=== PATIENT | male | born 1955 | race Caucasian/White ===

== ENCOUNTER 2016-09-04 | Emergency (ER) | payer OTHER | END 2016-09-04 18:28 | disposition home or self-care (01) ==

== ENCOUNTER 2017-08-21 08:33 | Day surgery (SDC) | payer OTHER ==
[2017-08-21] MEDS ORDERED: LACTATED RINGERS 1,000 ML IV ONE (09:09)
[2017-08-21] MEDS ORDERED: fentaNYL 100 MCG/2 ML VIAL IVP ONE (10:03)
[2017-08-21] MEDS ORDERED: KETAMINE 500 MG/10 ML VIAL IVP ONE (10:03)
[2017-08-21 10:53] VITALS: BP 123/72
== END 2017-08-21 08:34 | disposition home or self-care (01) ==
LOC: SDS 08:33
PROVIDERS: ATTEND Surgery
PROC: 0DBP8ZX Excision of Rectum, Via Natural or Artificial Opening Endoscopic, Diagnostic (ICD-10-PCS; principal; 2017-08-21 09:45)
DX: Z12.11 Encounter for screening for malignant neoplasm of colon (principal); D12.8 Benign neoplasm of rectum; K64.8 Other hemorrhoids; I10 Essential (primary) hypertension; Z87.891 Personal history of nicotine dependence
CPT/HCPCS: 45380; J7120

== ENCOUNTER 2019-05-02 22:28 | Emergency (ER) | payer OTHER ==
--- NOTE | 2019-05-02 22:52 | ED Physician Documentation ---
History of Present Illness - Stated complaint Stated Complaint: CP/BP CONCERN - Chief complaint Chief Complaint: Cardiac - Additonal information Additional information: This is a 64-year-old male with a history of hypertension who presents with elevated blood pressure. Patient states that he previously was on lisinopril in the past, but his blood pressure normalized after Starting a keto diet, and he was able to get off of his medication. Several weeks ago he began having some elevated blood pressure reading's, his blood pressure has been as high as 200/130, so his primary care provider started him back on 20 mg of lisinopril. Today he checked his blood pressure multiple times and he did have some readings in the high 100s to low 200s systolic. He was told by his primary care provider at that if he has any readings above 200 she needs to come to the emergency department. He presents to the ED because of this. On ROS he states that he did have 1-2 brief 1 second "twangs" of pain in his center chest hours ago, but no persistent chest pain, no shortness of breath, no headache, no weakness or numbness. Review of Systems Constitutional: denies: Fever Eyes: denies: Loss of vision Throat: reports: Dental pain / toothache Cardiac: denies: Palpitations Respiratory: denies: Dyspnea GI: denies: Abdominal Pain Skin: denies: Rash Neurologic: denies: Focal weakness Immunocompromised: denies: Immunocompromised PD PAST MEDICAL HISTORY - Past Medical History Cardiovascular: Hypertension, High cholesterol, Arrhythmia Respiratory: None Endocrine/Autoimmune: None GI: Hemorrhoids : None HEENT: Other Psych: None Musculoskeletal: None Derm: Other - Past Surgical History Past Surgical History: Yes General: Colonoscopy Ortho: Other - Present Medications Home Medications: Ambulatory Orders Medication Instructions Recorded Confirmed Lisinopril [Prinivil] 1 tab PO DAILY 09/04/16 08/21/17 Potassium Chloride [Micro-K] 1 tab PO DAILY 09/04/16 08/21/17 Rosuvastatin [Crestor] 1 tab PO DAILY 09/04/16 08/21/17 hydroCHLOROthiazide 1 tab PO DAILY 09/04/16 08/21/17 [Hydrochlorothiazide] - Allergies Allergies/Adverse Reactions: Allergies Allergy/AdvReac Type Severity Reaction Status Date / Time No Known Drug Allergies Allergy Verified 09/04/16 17:36 - Social History Does the pt smoke?: No Smoking Status: Never smoker Does the pt drink ETOH?: Yes - Immunizations Immunizations are current?: No Immunizations: TDAP >10years/unknown - POLST Patient has POLST: No PD ED PE NORMAL - Vitals Vital signs reviewed: Yes - General General: Alert and oriented X 3, No acute distress - HEENT HEENT: PERRL - Neck Neck: Supple, no meningeal sign - Cardiac Cardiac: RRR, No murmur - Respiratory Respiratory: Clear bilaterally - Abdomen Abdomen: Soft, Non tender, Non distended - Derm Derm: Warm and dry - Extremities Extremities: No deformity - Neuro Neuro: Alert and oriented X 3 - Psych Psych: Normal mood, Normal affect Results - Vitals Vitals: Vital Signs - 24 hr 05/02/19 05/02/19 05/02/19 22:32 22:52 22:55 Temperature 36.8 C 36.8 C Heart Rate 93 80 Respiratory 13 12 Rate Blood Pressure 194/90 H 194/96 H Blood Pressure 194/90 H [Left] O2 Saturation 99 97 05/02/19 23:44 Temperature Heart Rate 71 Respiratory 18 Rate Blood Pressure 144/94 H Blood Pressure [Left] O2 Saturation 98 Oxygen O2 Source Room air - EKG (time done) 22:36 Other comments: Other comments (Rate 79, rhythm sinus, there is no ST segment elevation or depression. No abnormal T wave inversions. Intervals within normal limits.) - Labs Labs: Laboratory Tests 05/02/19 05/02/19 05/02/19 22:45 22:45 23:25 WBC 9.6 RBC 4.77 Hgb 15.2 Hct 44.7 MCV 93.7 MCH 31.9 H MCHC 34.0 RDW 12.2 Plt Count 241 MPV 9.0 Neut # (Auto) 5.9 Lymph # (Auto) 2.8 [place] # (Auto) 0.7 Eos # (Auto) 0.1 Baso # (Auto) 0.0 Absolute Nucleated RBC 0.00 Nucleated RBC % 0.0 Sodium 140 Potassium 3.3 L Chloride 104 Carbon Dioxide 24 Anion Gap 12.0 BUN 14 Creatinine 1.0 Estimated GFR (MDRD) 76 L Glucose 99 Calcium 9.4 Total Bilirubin 1.3 H AST 22 ALT 32 Alkaline Phosphatase 51 Troponin I High Sens 6.1 Total Protein 7.1 Albumin 4.4 Globulin 2.7 Albumin/Globulin Ratio 1.6 Lipase 28 - Rads (name of study) CXR Radiology: Other (No acute intrathoracic abnormality.) PD MEDICAL DECISION MAKING - ED course Complexity details: considered differential (Hypertension, hypertensive emergency, ACS, dysrhythmia, pneumothorax, PE) ED course: Patient presents with hypertension, in triage he is hypertensive to the 190s over 90s. His exam is unremarkable. Chest x-ray shows no acute abnormality. Labs are unremarkable. EKG shows no convincing signs of ischemia or dysrhythmia. Patient was allowed to rest in his room and his blood pressure spontaneously improved to the 140s over 80s. He has been asymptomatic with his blood pressure, other than he had several very brief twinges of pain early in the day. High-sensitivity troponin is negative, and a single troponin is sufficient given he has not had any pain in recent hours. Given his history, EKG and negative troponin ACS is highly unlikely. His history is also not consistent with pulmonary embolism, he has no clinical signs of DVT, and has no chest pain or shortness of breath at this time. I discussed with patient that he needs to follow-up closely with his primary care provider on his blood pressure, he should log his pressures and call tomorrow to discuss whether further medication adjustment is necessary. I also discussed return precautions including signs of hypertensive emergency including confusion, chest pain, diaphoresis/vomiting, or any other concerning symptoms. Patient verbalizes understanding and was discharged home in the care of his . Departure - Departure Disposition: 01 Home, Self Care Clinical Impression: Hypertension Qualifiers: Hypertension type: unspecified Qualified Code(s): I10 - Essential (primary) hypertension Chest pain Qualifiers: Chest pain type: unspecified Qualified Code(s): R07.9 - Chest pain, unspecified Condition: Good Instructions: ED Chest Pain Atypical Unkn Cause, ED HTN Established Follow-Up: Apryl Celaya MD [Primary Care Provider] - (Call tomorrow to discuss hypertension) Comments: You were seen today for high blood pressure, this has come down nicely without medications given here. I do not see signs of heart strain on your work up today. Please continue to log your blood pressure, and call your primary care provider tomorrow to discuss whether you need need further medication adjustment. If you develop chest pain, severe headache, confusion, shortness of breath, please return to the emergency department. Discharge Date/Time: 05/03/19 00:30
[2019-05-02 22:53] LABS: BASOPHILS % (AUTO) 0.4 %; EOSINOPHILS # (AUTO) 0.1 10^3/uL (0.0-0.7); EOSINOPHILS % (AUTO) 0.8 %; HGB - HEMOGLOBIN 15.2 g/dL (14.0-18.0); LYMPHOCYTES # (AUTO) 2.8 10^3/uL (1.5-3.5); LYMPHOCYTES % (AUTO) 29.2 %; MEAN CORPUSCULAR HEMOGLOBIN 31.9 pg (27.0-31.0); MEAN CORPUSCULAR VOLUME 93.7 fL (80.0-94.0); MONOCYTES # (AUTO) 0.7 10^3/uL (0.0-1.0); MONOCYTES % (AUTO) 7.5 %; NEUTROPHILS # (AUTO) 5.9 10^3/uL (1.5-6.6); NEUTROPHILS % (AUTO) 61.8 %; PLT - PLATELET COUNT 241 10^3/uL (130-450); RED BLOOD COUNT 4.77 10^6/uL (4.70-6.10); RED CELL DISTRIBUTION WIDTH 12.2 % (12.0-15.0); WHITE BLOOD COUNT 9.6 x10^3/uL (4.8-10.8)
--- NOTE | 2019-05-02 23:01 | XRAY Report ---
Reason: chest pain Procedure Date: 05/02/2019 Accession Number: [id number] / [id number] Procedure: XR - Chest 1 View X-Ray CPT Code: 17710 FULL RESULT: EXAM: CHEST RADIOGRAPHY EXAM DATE: 05/02/2019 10:51 PM. CLINICAL HISTORY: Chest pain. COMPARISON: None. TECHNIQUE: 1 view. FINDINGS: Lungs/Pleura: No focal opacities evident. No pleural effusion. No pneumothorax. Mediastinum: Within exam limitations, the cardiomediastinal contour is normal. Other: None. IMPRESSION: No acute intrathoracic plain film abnormality. RADIA
[2019-05-02 23:07] LABS: ALBUMIN 4.4 g/dL (3.2-5.5); ALBUMIN/GLOBULIN RATIO 1.6 (1.0-2.2); BILIRUBIN,TOTAL 1.3 mg/dL (0.2-1.0); CALCIUM 9.4 mg/dL (8.5-10.3); TOTAL PROTEIN 7.1 g/dL (6.7-8.2)
[2019-05-02 23:44] VITALS: BP 144/94
== END 2019-05-03 00:30 | disposition home or self-care (01) ==
LOC: ED 22:28
DX: I10 Essential (primary) hypertension (principal); R07.9 Chest pain, unspecified
CPT/HCPCS: 36415; 71045; 80053; 83690; 84484; 85025; 93005; 99284

== ENCOUNTER 2019-11-22 06:51 | Observation (INO) | payer OTHER ==
[2019-11-22 07:35] LABS: BASOPHILS # (AUTO) 0.1 10^3/uL (0.0-0.1); BASOPHILS % (AUTO) 0.5 %; EOSINOPHILS # (AUTO) 0.2 10^3/uL (0.0-0.7); HGB - HEMOGLOBIN 16.1 g/dL (14.0-18.0); INR 1.1 (0.8-1.2); LYMPHOCYTES # (AUTO) 3.3 10^3/uL (1.5-3.5); LYMPHOCYTES % (AUTO) 33.2 %; MEAN CORPUSCULAR HEMOGLOBIN 33.3 pg (27.0-31.0); MEAN CORPUSCULAR HGB CONC 35.9 g/dL (32.0-36.0); MEAN CORPUSCULAR VOLUME 92.8 fL (80.0-94.0); MEAN PLATELET VOLUME 9.2 fL (7.4-11.4); MONOCYTES # (AUTO) 0.6 10^3/uL (0.0-1.0); MONOCYTES % (AUTO) 6.4 %; NEUTROPHILS # (AUTO) 5.7 10^3/uL (1.5-6.6); NEUTROPHILS % (AUTO) 57.6 %; PLT - PLATELET COUNT 282 10^3/uL (130-450); PT - PROTHROMBIN TIME 12.5 secs (9.9-12.6); RED BLOOD COUNT 4.84 10^6/uL (4.70-6.10); RED CELL DISTRIBUTION WIDTH 12.2 % (12.0-15.0); WHITE BLOOD COUNT 9.9 x10^3/uL (4.8-10.8)
[2019-11-22 07:46] LABS: ALBUMIN 4.4 g/dL (3.2-5.5); ALBUMIN/GLOBULIN RATIO 1.7 (1.0-2.2); BILIRUBIN,TOTAL 1.1 mg/dL (0.2-1.0); CALCIUM 9.1 mg/dL (8.5-10.3); CREATININE 0.9 mg/dL (0.6-1.2)
[2019-11-22] MEDS ORDERED: ONDANSETRON 4 MG/2 ML VIAL IVP STA (08:10)
--- NOTE | 2019-11-22 08:22 | CT Report ---
Reason: syncope/fall/head injury/confusion Procedure Date: 11/22/2019 Accession Number: [id number] / [id number] Procedure: CT - HEAD WO CPT Code: Final Report FULL RESULT: EXAM: CT HEAD EXAM DATE: 11/22/2019 07:53 AM. CLINICAL HISTORY: Syncope with fall and head injury. Confusion. COMPARISON: None. TECHNIQUE: Multiaxial CT images were obtained from the foramen magnum to the vertex. Reformats: Sagittal and coronal. IV contrast: None. In accordance with CT protocol optimization, one or more of the following dose reduction techniques were utilized for this exam: automated exposure control, adjustment of mA and/or KV based on patient size, or use of iterative reconstructive technique. FINDINGS: Parenchyma: Mild patchy white matter hypoattenuation, compatible with chronic small vessel ischemic change. No intraparenchymal hemorrhage, mass effect, or CT findings of evolving acute/subacute infarct. [place]-white differentiation is distinct. Extraaxial Spaces: Normal for age. No subdural or epidural collections identified. Ventricles: The ventricles and basal cisterns are patent. No hydrocephalus or midline shift. Sinuses: The visualized paranasal sinuses and mastoid air cells are clear. Bones: No evidence of fracture or calvarial defect. Other: Subgaleal scalp hematoma at the posterior vertex. IMPRESSION: 1. Subgaleal scalp hematoma at the posterior vertex. 2. Mild chronic microvascular angiopathy. 3. No acute intracranial abnormality. RADIA
--- NOTE | 2019-11-22 08:31 | CT Report ---
Reason: syncope/fall/head injury Procedure Date: 11/22/2019 Accession Number: [id number] / [id number] Procedure: CT - CERVICAL SPINE WO CPT Code: Final Report FULL RESULT: EXAM: CT CERVICAL SPINE WITHOUT CONTRAST DATE: 11/22/2019 07:53 AM. HISTORY: Fall with syncope and head injury. Confusion. COMPARISONS: None. TECHNIQUE: Thin-section axial images were acquired of the cervical spine without contrast. Post-processing: Coronal and sagittal reformats. Other: None. In accordance with CT protocol optimization, one or more of the following dose reduction techniques were utilized for this exam: automated exposure control, adjustment of mA and/or KV based on patient size, or use of iterative reconstructive technique. FINDINGS: Alignment: No scoliosis or spondylolisthesis. Bones: No fracture or bone lesion. Interspace Levels/Facets: C1-C2: Mild odontoaxial osteoarthritis. C2-C3: Mild disk height loss. Mild disk osteophyte complex and mild right facet arthropathy, without significant bony central canal stenosis or neural foraminal narrowing. C3-C4: Mild disk height loss. Disk osteophyte complex with right uncovertebral hypertrophy and mild right facet arthropathy causing severe right and mild left bony neural foraminal narrowing. No significant bony central canal stenosis. C4-C5: Mild disk height loss. Disk osteophyte complex and mild bilateral facet arthropathy causing mild bony central canal stenosis and severe bilateral bony neural foraminal narrowing. C5-C6: Moderate to severe disk height loss. Disk osteophyte complex causing mild bony central canal stenosis and severe left and moderate right bony neural foraminal narrowing. C6-C7: Moderate to severe disk height loss. Disk osteophyte complex causing mild bony central canal stenosis. No significant bony neural foraminal narrowing. C7-T1: Mild disk height loss. Disk osteophyte complex and mild right facet arthropathy. No significant bony central canal stenosis or neural foraminal narrowing. Other: No paravertebral hematoma or edema is evident. The visualized portions of the lung apices are clear. IMPRESSION: 1. Multilevel degenerative disk disease and facet arthropathy, as detailed above. 2. No acute bony abnormality. RADIA
--- NOTE | 2019-11-22 08:48 | ED Physician Documentation ---
PD HPI ALTERED MENTAL STATUS - Stated complaint Stated Complaint: VOMITING/CONFUSION - Chief complaint Chief Complaint: Neuro - History obtained from History obtained from: Patient - Additional information Additional information: Patient comes emergency department complaining of nausea and generalized weakness that started today. Patient does not remember going to bed last night or waking up this morning. According to report the gave, they were going out to the garden this morning when the looked back and saw the patient had fallen to the ground. He was dazed and confused and has remained confused since. Patient states that he feels "blah and fuzzy". He states he cannot remember what medications he is on and that details of recent events in general seem unclear. He denies any focal neurologic deficits. No chest pain or shortness of breath. He has not felt sick with anything recently. He denies any abdominal pain or vomiting. He does complain of some nausea at this time. No fevers or chills. No cough or rhinorrhea. No dysuria. Patient has no history of CVA. No known heart problems. No other complaints at this time. He is not a diabetic. Review of Systems Ten Systems: 10 systems reviewed and negative Constitutional: reports: Reviewed and negative Eyes: reports: Reviewed and negative Ears: reports: Reviewed and negative Nose: reports: Reviewed and negative Throat: reports: Reviewed and negative Cardiac: reports: Reviewed and negative Respiratory: reports: Reviewed and negative GI: reports: Nausea : reports: Reviewed and negative Skin: reports: Reviewed and negative Musculoskeletal: reports: Reviewed and negative Neurologic: reports: Generalized weakness, Confused Psychiatric: reports: Reviewed and negative Endocrine: reports: Reviewed and negative Immunocompromised: reports: Reviewed and negative PD PAST MEDICAL HISTORY - Past Medical History Cardiovascular: Hypertension, High cholesterol, Arrhythmia Respiratory: None Neuro: None Endocrine/Autoimmune: None GI: Hemorrhoids : None HEENT: Other Psych: None Musculoskeletal: None Derm: Other - Past Surgical History Past Surgical History: Yes General: Colonoscopy Ortho: Other - Present Medications Home Medications: Ambulatory Orders Medication Instructions Recorded Confirmed Rosuvastatin [Crestor] 10 mg PO QPM 09/04/16 11/22/19 Zolpidem Tartrate 5 mg PO QPM PRN 11/22/19 11/22/19 lisinopriL [Lisinopril] 10 mg PO BID 11/22/19 11/22/19 - Allergies Allergies/Adverse Reactions: Allergies Allergy/AdvReac Type Severity Reaction Status Date / Time No Known Drug Allergies Allergy Verified 09/04/16 17:36 - Social History Does the pt smoke?: No Smoking Status: Never smoker Does the pt drink ETOH?: Yes Does the pt have substance abuse?: Yes - Immunizations Immunizations are current?: No Immunizations: TDAP >10years/unknown - POLST Patient has POLST: No PD ED PE NORMAL - Vitals Vital signs reviewed: Yes - General General: No acute distress, Well developed/nourished, Other (Patient is alert and coherent, and is able to express coherent thoughts. 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 He is able to speak clearly and express coherent thoughts, and is alert, but does not have clear recollection of general life details in recent events.) - Psych Psych: Normal mood, Normal affect Results - Vitals Vitals: Oxygen O2 Source Room air - EKG (time done) 0720 Rate: Rate (enter#) (66) Rhythm: NSR [place]: Normal Intervals: Normal [place] QRS: No: Normal (Abnormal R wave progression, early transition.) Ischemia: Normal ST segments Compare to prior EKG: Old EKG unavailable Computer interpretation: Agree with computer - Labs Labs: Laboratory Tests 11/22/19 11/22/19 11/22/19 07:22 07:22 07:22 WBC 9.9 RBC 4.84 Hgb 16.1 Hct 44.9 MCV 92.8 MCH 33.3 H MCHC 35.9 RDW 12.2 Plt Count 282 MPV 9.2 Neut # (Auto) 5.7 Lymph # (Auto) 3.3 [place] # (Auto) 0.6 Eos # (Auto) 0.2 Baso # (Auto) 0.1 Absolute Nucleated RBC 0.00 Nucleated RBC % 0.0 PT 12.5 INR 1.1 Sodium 135 Potassium 2.9 L Chloride 103 Carbon Dioxide 19 L Anion Gap 13.0 BUN 15 Creatinine 0.9 Estimated GFR (MDRD) 86 L Glucose 181 H POC Whole Bld Glucose Glycated Hemoglobin Estim Average Glucose Calcium 9.1 Total Bilirubin 1.1 H AST 26 ALT 31 Alkaline Phosphatase 54 Troponin I High Sens Total Protein 7.0 Albumin 4.4 Globulin 2.6 Albumin/Globulin Ratio 1.7 Lipase 27 Urine Color Urine Clarity Urine pH Ur Specific [place] Urine Protein Urine Glucose (UA) Urine Ketones Urine Occult Blood Urine Nitrite Urine Bilirubin Urine Urobilinogen Ur Leukocyte Esterase Ur Microscopic Review Urine Culture Comments Urine Opiates Screen Ur Oxycodone Screen Urine Methadone Screen Ur Propoxyphene Screen Ur Barbiturates Screen Ur Tricyclics Screen Ur Phencyclidine Scrn Ur Amphetamine Screen U Methamphetamines Scrn U Benzodiazepines Scrn Urine Cocaine Screen U Cannabinoids Screen Ethyl Alcohol 11/22/19 11/22/19 11/22/19 07:22 07:24 08:15 WBC RBC Hgb Hct MCV MCH MCHC RDW Plt Count MPV Neut # (Auto) Lymph # (Auto) [place] # (Auto) Eos # (Auto) Baso # (Auto) Absolute Nucleated RBC Nucleated RBC % PT INR Sodium Potassium Chloride Carbon Dioxide Anion Gap BUN Creatinine Estimated GFR (MDRD) Glucose POC Whole Bld Glucose 157 H Glycated Hemoglobin 4.9 Estim Average Glucose 94 Calcium Total Bilirubin AST ALT Alkaline Phosphatase Troponin I High Sens Total Protein Albumin Globulin Albumin/Globulin Ratio Lipase Urine Color YELLOW Urine Clarity CLEAR Urine pH 7.5 Ur Specific [place] 1.020 Urine Protein NEGATIVE Urine Glucose (UA) NEGATIVE Urine Ketones 40 H Urine Occult Blood NEGATIVE Urine Nitrite NEGATIVE Urine Bilirubin NEGATIVE Urine Urobilinogen 0.2 (NORMAL) Ur Leukocyte Esterase NEGATIVE Ur Microscopic Review NOT INDICATED Urine Culture Comments NOT INDICATED Urine Opiates Screen Ur Oxycodone Screen Urine Methadone Screen Ur Propoxyphene Screen Ur Barbiturates Screen Ur Tricyclics Screen Ur Phencyclidine Scrn Ur Amphetamine Screen U Methamphetamines Scrn U Benzodiazepines Scrn Urine Cocaine Screen U Cannabinoids Screen Ethyl Alcohol 11/22/19 11/22/19 11/22/19 08:15 10:24 10:25 WBC RBC Hgb Hct MCV MCH MCHC RDW Plt Count MPV Neut # (Auto) Lymph # (Auto) [place] # (Auto) Eos # (Auto) Baso # (Auto) Absolute Nucleated RBC Nucleated RBC % PT INR Sodium Potassium Chloride Carbon Dioxide Anion Gap BUN Creatinine Estimated GFR (MDRD) Glucose POC Whole Bld Glucose Glycated Hemoglobin Estim Average Glucose Calcium Total Bilirubin AST ALT Alkaline Phosphatase Troponin I High Sens 4.9 Total Protein Albumin Globulin Albumin/Globulin Ratio Lipase Urine Color Urine Clarity Urine pH Ur Specific [place] Urine Protein Urine Glucose (UA) Urine Ketones Urine Occult Blood Urine Nitrite Urine Bilirubin Urine Urobilinogen Ur Leukocyte Esterase Ur Microscopic Review Urine Culture Comments Urine Opiates Screen NEGATIVE Ur Oxycodone Screen NEGATIVE Urine Methadone Screen NEGATIVE Ur Propoxyphene Screen NEGATIVE Ur Barbiturates Screen NEGATIVE Ur Tricyclics Screen NEGATIVE Ur Phencyclidine Scrn NEGATIVE Ur Amphetamine Screen NEGATIVE U Methamphetamines Scrn NEGATIVE U Benzodiazepines Scrn NEGATIVE Urine Cocaine Screen NEGATIVE U Cannabinoids Screen POSITIVE H Ethyl Alcohol < 5.0 - Rads (name of study) CT head Radiology: Final report received, EMP read indepedently, See rad report (unremarkable) PD MEDICAL DECISION MAKING - ED course Complexity details: reviewed old records, reviewed results, re-evaluated patient, considered differential, d/w patient ED course: Patient was worked up with labs, urinalysis, EKG, and CTs of the C-spine and head, all of which were unremarkable. He did begin actively vomiting in the emergency department, so was given Zofran as well as IV fluids. The patient did not have worsening mental status, but he did seem to have progressive amnesia which did not bella. Although his work-up was negative, I felt he should be admitted to the hospital for observation to be sure his mental status is improving. I spoke with Dr. Combs, who is agreeable to admission the patient. The patient is also agreeable to this plan. Departure - Departure Disposition: ED Place in Observation Clinical Impression: Altered mental status Qualifiers: Altered mental status type: disorientation Qualified Code(s): R41.0 - Disorientation, unspecified Discharge Date/Time: 11/22/19 12:00
[2019-11-22] MEDS ORDERED: SODIUM CHLORIDE 0.9% 1,000 ML IV ONE (08:51)
[2019-11-22 09:05] LABS: BILIRUBIN,URINE NEGATIVE (NEGATIVE); GLUCOSE, URINE (UA) NEGATIVE (NEGATIVE); KETONES,URINE (UA) 40 mg/dL (NEGATIVE); LEUKOCYTE ESTERASE, URINE NEGATIVE (NEGATIVE); NITRITE,URINE NEGATIVE (NEGATIVE); OCCULT BLOOD,URINE NEGATIVE (NEGATIVE); PH,URINE 7.5 PH (5.0-7.5); PROTEIN,URINE NEGATIVE (NEGATIVE); UROBILINOGEN,URINE 0.2 (NORMAL) E.U./dL (NORMAL)
[2019-11-22 09:08] LABS: CLARITY,URINE CLEAR (CLEAR)
[2019-11-22 10:34] LABS: MUDS CUTOFF CONCENTRATIONS CUTOFF CONC BELOW:
[2019-11-22] MEDS ORDERED: SODIUM CHLORIDE FLUSH 0.9% 10 ML SYRINGE IVP PRN (10:36)
[2019-11-22] MEDS ORDERED: ACETAMINOPHEN 325 MG TABLET PO PRN (10:41)
[2019-11-22] MEDS ORDERED: ONDANSETRON 4 MG/2 ML VIAL IVP PRN (10:41)
[2019-11-22 10:47] LABS: AMPHETAMINE SCREEN,URINE NEGATIVE (NEGATIVE); BENZODIAZEPINES SCREEN, URINE NEGATIVE (NEGATIVE); COCAINE SCREEN URINE NEGATIVE (NEGATIVE); METHADONE SCREEN, URINE NEGATIVE (NEGATIVE); METHAMPHETAMINES SCREEN, URINE NEGATIVE (NEGATIVE); OPIATE SCREEN, URINE NEGATIVE (NEGATIVE); OXYCODONE SCREEN, URINE NEGATIVE (NEGATIVE); PROPOXYPHENE SCREEN, URINE NEGATIVE (NEGATIVE); TRICYCLIC ANTIDEPRESSANT,URINE NEGATIVE (NEGATIVE)
[2019-11-22] MEDS ORDERED: ZOLPIDEM 5 MG TABLET PO PRN (10:53)
[2019-11-22] MEDS: POTASSIUM CHLOR 10 MEQ/100 ML 10 MEQ/100 ML BAG IV SCH ×2 (11:06→13:18)
--- NOTE | 2019-11-22 11:06 | HISTORY & PHYSICAL EXAMINATION ---
Chief Complaint - Chief Complaint Chief Complaint: syncope History of Present Illness - Admitted From Admitted From:: ER - History Obtained From History obtained from: pt - History of Present Illness HPI Comment/Other: this a 64 years old male with a past medical history significant of hypertension, hyperlipidemia, who present in the ER for complaint syncope. Patient report in the morning when he worked with his in the yard, his could not find and talk with him, then his saw him collapsed in the ground. his found that he lost conscious for short time. Patient state " I do not known and I did not remember." Patient denies injury, Except posterior of the head have some pain. CT of head reveals subgaleal scalp hematoma at the posterior vertex, no acute intracranial abnormality. Routine level test in the ER normal troponin, Potassium 2.9, Slightly elevated glucose but A1c is normal, Otherwise unremarkables. EKG review sinus rhythm. pt is alert and oriented. Patient report he quit smoking 10 years ago he denies alcohol or drug abuse. Patient denies chest pain, fever, chilling, shortness of breathing, abdominal pain, nausea, vomiting, diarrhea or other focal neurologic deficits. pt was admitted for syncope. Discussed with the patient for care goal, patient request full code History - Past Medical History Cardiovascular: reports: Hypertension, High cholesterol, Arrhythmia Respiratory: reports: None Neuro: reports: None Endocrine/Autoimmune: reports: None GI: reports: Hemorrhoids : reports: None HEENT: reports: Other Psych: reports: None Musculoskeletal: reports: None Derm: reports: Other MRSA Hx?: No - Past Surgical History General: reports: Colonoscopy Ortho: reports: Other - Family & Social History Family History: Father: , Blood Disease/Disorder Family History Comment/Other: pt report his father from PE, he did not know about his mother, his siblings are health. he has no child Social History Notes: he quitted smoking about 10 yrs ago. he denies alcohol and drug abuse - POLST Patient has POLST: No Meds/Allgy - Home Medications Home Medications: Ambulatory Orders Medication Instructions Recorded Confirmed Rosuvastatin [Crestor] 10 mg PO QPM 09/04/16 11/22/19 Zolpidem Tartrate 5 mg PO QPM PRN 11/22/19 11/22/19 lisinopriL [Lisinopril] 10 mg PO BID 11/22/19 11/22/19 - Allergies Allergies/Adverse Reactions: Allergies Allergy/AdvReac Type Severity Reaction Status Date / Time No Known Drug Allergies Allergy Verified 09/04/16 17:36 Review of Systems - Constitutional Constitutional: denies: Fatigue, Fever, Chills, Malaise, Weakness, Poor appetite, Diaphoresis, Night sweats - Eyes Eyes: denies: Blurred vision, Spots in vision, Field loss, Vision loss, Dipolpia - Ears, Nose & Throat Ears, Nose & Throat: denies: Ear pain, Hearing loss, Hearing aids, Vertigo, Nasal pain, Nasal discharge, Nosebleeds, Nasal congestion, Dentures, Sore throat, Mouth lesions, Bleeding gums - Cardiovascular Cariovascular: reports: Syncope. denies: Irregular heart rate, Palpitations, Chest pain, Edema, Lightheadedness, Exertional dyspnea, Decr. exercise tolerance - Respiratory Respiratory: denies: Cough, Sputum production, Wheezing, Snoring, Hemoptysis, Orthopnea, SOB at rest, SOB with exertion - Gastrointestinal Gastrointestinal: denies: Abdominal pain, Abdominal distention, Constipation, Diarrhea, Change in bowel habits, Rectal bleeding, Black stools, Nausea, Vomiting, Bile emesis, Alireza blood emesis, Coffee grounds emesis - Genitourinary Genitourinary: denies: Dysuria, Frequency, Urgency, Hematuria, Incontinence, Flank pain, Nocturia, Urethral discharge - Musculoskeletal Musculoskeletal: denies: Muscle pain, Back pain, Muscle aches, Stiffness, Limited range of motion, Muscle weakness, Gout, Joint pain - Integumentary Integumentary: denies: Rash, Pruritis, Lesions, Dryness, Lumps, Acne, Pigment changes, Nail changes - Neurological Neurological: denies: General weakness, Focal weakness, Headache, Dizziness, Numbness, Memory problems, Pre-existing deficit, Abnormal gait, Seizures, Incoordination, Slurred speech - Psychiatric Psychiatric: denies: Depression, Anxiety, Suicidal, Delusions, Hallucinations, Homicidal - Endocrine Endocrine: denies: Polyuria, Polydypsia, Polyphagia, Intolerance to cold - Hematologic/Lymphatic Hematologic/Lymphatic: denies: Anemia, Bruising, Petechiae, Blood clots, Lymphadenopathy, Bleeding tendencies Exam - Vital Signs Vital Signs: Vital Signs x48h Temp Pulse Resp BP Pulse Ox 05/08/20 09:19 62 19 153/83 H 96 11/22/19 08:28 36.5 C 78 16 167/86 H 100 11/22/19 07:06 36.0 C L 68 14 154/89 H 100 - Physical Exam General Appearance: positive: No acute distress, Alert. negative: Lethargic Eyes Bilateral: positive: Normal inspection, PERRL, No lid inflammation ENT: positive: ENT inspection nml, Pharynx nml, No signs of dehydration. negative: Purulent nasal drainage Neck: positive: Nml inspection, Thyroid nml, No JVD, Trachea midline. negative: Thyromegaly, Lymphadenopathy (R), Lymphadenopathy (L), Stiff neck, Tracheal deviation Respiratory: positive: Chest non-tender, No respiratory distress, Breath sounds nml. negative: Wheezes, Rales, Rhonchi Cardiovascular: positive: Regular rate & rhythm, No murmur, No gallop. negative: Irregularly irregular, Tachycardia, Bradycardia, JVD present, Systolic murmur, Diastolic murmur Peripheral Pulses: positive: 2+ Abdomen: positive: Non-tender, No organomegaly, Nml bowel sounds, No distention. negative: Tenderness, Guarding, Rebound Back: positive: Nml inspection. negative: CVA tenderness (R), CVA tenderness (L) Skin: positive: Color nml, No rash, Warm, Dry. negative: Cyanosis, Diaphoresis, Pallor Extremities: positive: Non-tender, Full ROM, Nml appearance. negative: Calf tenderness, Matt's sign/cords Neurologic/Psychiatric: positive: Oriented x3, Motor nml, Sensation nml, Mood/affect nml. negative: Weakness, Sensory loss, Facial droop, Slurred/abnml speech, Depressed mood/affect Sepsis Event Note (H) - Evaluation Current Stage of Sepsis: Ruled out Conclusion/Plan - Problem List (1) Syncope Conclusion/Plan: pt is alert and oriented. Patient have syncope in the home, and the loss of conscious for shortness of time. patient had fall but without injury. pt has a CT for the head and neck which were unremarkable. It is first time for pt to have syncope. pt denies chest pain, Patient's troponin is normal, initiate EKG is a sinus rhythm. plan: ECHO, tele monitor, orthostatic BP check, US of carotid. (2) Hypertension Conclusion/Plan: stable, resume home Lisinopril Qualifiers: Hypertension type: unspecified Qualified Code(s): I10 - Essential (primary) hypertension (3) HLD (hyperlipidemia) Conclusion/Plan: stable, will resume home meds (4) Hypokalemia Conclusion/Plan: potassium is 2.9, will replacement of potassium and lab monitor (5) Hyperglycemia Conclusion/Plan: pt's glucose is 181, will check A1C. pt denies hx of diabetes, and followup - Lab Results Fish Bones: 11/22/19 07:22 11/22/19 07:22 Core Measures - Anticipated LOS I expect patient to be DC'd or transferred within 96 hours.: Yes - DVT/VTE - Prophylaxis VTE/DVT Device ordered at admit?: Yes VTE/DVT Prophylaxis med ordered at admit?: Yes
[2019-11-22 11:23] LABS: HB2 TOTAL 16.8 g/dL; HEMOGLOBIN A1C 0.51 g/dL; HEMOGLOBIN A1C % 4.9 % (4.6-6.2)
[2019-11-22] MEDS ORDERED: POTASSIUM CHLORIDE 20 MEQ TABLET PO ONE (12:00)
[2019-11-22] MEDS: lisinopriL 5 MG TABLET PO SCH ×2 (12:12→21:13)
[2019-11-22] MEDS: SODIUM CHLORIDE FLUSH 0.9% 10 ML SYRINGE IVP SCH ×2 (16:58→23:36)
--- NOTE | 2019-11-23 | Ultrasound Report ---
Reason: syncope Procedure Date: 11/22/2019 Accession Number: [id number] / [id number] Procedure: US - Carotid Doppler Complete CPT Code: Final Report FULL RESULT: EXAM: BILATERAL CAROTID AND VERTEBRAL ARTERY DUPLEX DOPPLER ULTRASOUND: EXAM DATE: 11/22/2019 08:41 PM CLINICAL HISTORY: Syncope. COMPARISON: None. TECHNIQUE: Grayscale imaging, color Doppler, and duplex spectral Doppler were used to evaluate the carotid and vertebral arteries bilaterally. Static images were obtained. FINDINGS: Mild bilateral carotid plaquing. Normal antegrade flow is present in bilateral vertebral arteries. VELOCITIES: Right CCA mid: PSV 100 cm/sec CCA dist: PSV 108 cm/sec ICA prox: PSV 128 cm/sec, EDV 29 cm/sec ICA mid: PSV 92 cm/sec, EDV 26 cm/sec ICA dist: PSV 99 cm/sec, EDV 25 cm/sec ECA: PSV 101 cm/sec Vert: PSV 59 cm/sec ICA/CCA: 1.1 Left CCA mid: PSV 123 cm/sec CCA dist: PSV 120 cm/sec ICA prox: PSV 106 cm/sec, EDV 22 cm/sec ICA mid: PSV 83 cm/sec, EDV 27 cm/sec ICA dist: PSV 98 cm/sec, EDV 34 cm/sec ECA: PSV 135 cm/sec Vert: PSV 85 cm/sec ICA/CCA: 0.86 ICA diameter stenosis: Right: <50% by velocity and <70% by NASCET criteria. Left: <50% by velocity and <70% by NASCET criteria. IMPRESSION: 1. Mild bilateral carotid artery plaquing. 2. In the right carotid artery there are no elevated carotid artery velocities to suggest hemodynamically significant stenosis. 3. In the left carotid artery there are no elevated carotid artery velocities to suggest hemodynamically significant stenosis. 4. Normal antegrade flow is present in bilateral vertebral arteries. General Recommendations: Stenosis =50% ICA - Follow-up ultrasound 6-12 months Stenosis <50% ICA - High Risk Patient with plaque - Follow-up ultrasound 1-2 years Normal Study but High Risk Patient - Follow-up ultrasound 3-5 years Management recommendations and diagnostic criteria are based on current IAC endorsed standards in Carotid Artery Stenosis: Grayscale and Doppler Ultrasound Diagnosis. Validated velocity measurements with angiographic measurements and velocity criteria are extrapolated from diameter data as defined by the Society of Radiologists in Ultrasound Consensus Conference Radiology 2003; 229;340-346. RADIA
[2019-11-23 05:16] LABS: BASOPHILS % (AUTO) 0.2 %; EOSINOPHILS % (AUTO) 0.3 %; HGB - HEMOGLOBIN 15.1 g/dL (14.0-18.0); LYMPHOCYTES # (AUTO) 2.3 10^3/uL (1.5-3.5); LYMPHOCYTES % (AUTO) 17.6 %; MEAN CORPUSCULAR HEMOGLOBIN 32.1 pg (27.0-31.0); MEAN CORPUSCULAR HGB CONC 33.9 g/dL (32.0-36.0); MEAN CORPUSCULAR VOLUME 94.7 fL (80.0-94.0); MEAN PLATELET VOLUME 9.2 fL (7.4-11.4); MONOCYTES # (AUTO) 0.8 10^3/uL (0.0-1.0); MONOCYTES % (AUTO) 5.9 %; NEUTROPHILS # (AUTO) 9.7 10^3/uL (1.5-6.6); NEUTROPHILS % (AUTO) 75.6 %; PLT - PLATELET COUNT 214 10^3/uL (130-450); RED CELL DISTRIBUTION WIDTH 12.4 % (12.0-15.0); WHITE BLOOD COUNT 12.8 x10^3/uL (4.8-10.8)
[2019-11-23 05:19] LABS: CALCIUM 9.1 mg/dL (8.5-10.3); CREATININE 0.7 mg/dL (0.6-1.2); MAGNESIUM 2.2 mg/dL (1.7-2.8)
[2019-11-23] MEDS ORDERED: PANTOPRAZOLE 40 MG TABLET PO SCH (07:00)
[2019-11-23] MEDS: lisinopriL 5 MG TABLET PO SCH (08:13)
[2019-11-23] MEDS: SODIUM CHLORIDE FLUSH 0.9% 10 ML SYRINGE IVP SCH (08:15)
--- NOTE | 2019-11-23 08:23 | Discharge Plan ---
Discharge Plan Problem Reviewed?: Yes Disposition: Home, Self Care Diet: Low Sodium Activity Restrictions: Activity as Tolerated Shower Restrictions: No Driving Restrictions: Yes (You are not allowed to drive a vehicle until cleared to do so by your PCP) Instruction Topics: Syncope Causes, COVID-19 [facility] Health Concerns: You were in the hospital in Observation status after you had syncope (a fainting spell). The most likely cause is dehydration (possibly from fluid loss/perspiration during gardening). We found that you had a very low potassium level, even though you are not on HCTZ any longer, which may have also played a role in the fainting. Your A1c is excellent, therefore, maybe a very low glucose level caused the syncope. Your low potassium level was replaced. The CT scan of your head showed no stroke. You had an ultrasound of your heart that was essentially normal. The heart rhythm monitor was fine. You had an ultrasound of your carotid arteries that showed mild bilateral narrowing. Your PCP may want you to take a baby aspirin daily, due to that. Please resume all your prehospital medications. YOU ARE NOT ALLOWED TO DRIVE A VEHICLE NOW, BECAUSE OF THE FAINTING SPELL, UNTIL CLEARED TO RESUME DRIVING BY YOUR PCP. You need to see your Provider, for hospital follow-up, in the next week. Plan of Treatment: As above. Care Goals: Stabilization is the goal. Assessment: Patient understands. Additional Instructions or Follow Up instructions: If you have recurrent, new or worsening symptoms, call your PCP for advice or come to the ER. No Smoking: If you smoke, Please STOP! Call for help. Follow-up with: Apryl Celaya MD [Primary Care Provider] -
--- NOTE | 2019-11-23 08:41 | DISCHARGE SUMMARY ---
Discharge Summary Admit Date: 11/22/19 Discharge Date: 11/23/19 Discharging Provider: Dr Michelle Reynoso Primary Care Provider: Dr Apryl Celaya Code Status: Attempt Resuscitation Discharge Disposition: 01 Home, Self Care - HPI History of Present Illness: From the admission H&P of [place] NP: This a 64 year old white male with a past medical history significant for hypertension, obesity, DM and hyperlipidemia, who presented to the ER with complaint of syncope. Patient reported that in that morning when he worked with his in the yard, his could not find him, then his found him collapsed on the ground. She said he lost consciousness for short time. Patient stated " I do not known what happened and I do not remember." Patient wondered if he tripped and fell, as he had posterior head pain. CT of head revealed subgaleal scalp hematoma at the posterior vertex, no acute intracranial abnormality. Routine lab tests in the ER showed normal troponin, Potassium 2.9, Slightly elevated glucose but A1c is normal, the rest unremarkable. EKG had sinus rhythm. He was alert and oriented. Patient reported he quit smoking 10 years ago he denies alcohol or drug abuse, but his drug screen was positive for marijuana. He was placed in Observation status to evaluate syncope. - HOSPITAL COURSE Hospital Course: (1) Syncope The patient was alert and oriented and had no focal deficits. Patient had a fall but without significant injury except scalp hematoma. The CT of the head and neck were otherwise unremarkable. Patient's troponin and EKG were normal. He underwent a resting bedside Echo which was essentially within normal limits. Telemetry showed no dysrhythmias. He had several orthostatic blood pressure checks which were normal. Carotid ultrasound showed only mild bilateral stenosis. The presumptive cause of his syncope was from volume depletion, or possibly an arrhythmia from his hypokalemia, or hypoglycemia from his diabetic treatment. He was advised that he may not drive a vehicle after discharge, until being cleared to do so by his PCP. (2) Hyperglycemia The patient's glucose was 181, and A1C was 6.5. If he is a (non-diagnosed diabetic), perhaps an episode of hypoglycemia caused the syncope. He needs a PCP visit to work-up for DM. (3) Hypokalemia In the ER, his potassium was 2.9. He got replacement of potassium and the following serum K was normal at 3.8. He may need to be on a higher potassium- containing diet. (4) Carotid stenosis The carotid ultrasound found mild bilateral stenosis. There is an indication for him to be on one baby aspirin daily, given this finding. He was advised to see his PCP to confirm if he should start daily aspirin. (5) Hypertension BP here was stable, and he had no orthostasis. He was kept on his Lisinopril bid. (6) HLD (hyperlipidemia) We continued his home statin medication. We discussed his "Keto diet but cheating with ice cream and potato chips". A Mediterranean diet was advised. - ALLERGIES Allergies/Adverse Reactions: Allergies Allergy/AdvReac Type Severity Reaction Status Date / Time No Known Drug Allergies Allergy Verified 09/04/16 17:36 - MEDICATIONS Home Medications: Ambulatory Orders Medication Instructions Recorded Confirmed Rosuvastatin [Crestor] 10 mg PO QPM 09/04/16 11/22/19 Zolpidem Tartrate 5 mg PO QPM PRN 11/22/19 11/22/19 lisinopriL [Lisinopril] 10 mg PO BID 11/22/19 11/22/19 - PHYSICAL EXAM AT DISCHARGE General Appearance: positive: No acute distress, Alert Eyes Bilateral: positive: Normal inspection, EOMI ENT: positive: ENT inspection nml, No signs of dehydration Neck: positive: Nml inspection, No JVD Respiratory: positive: No respiratory distress Cardiovascular: positive: Regular rate & rhythm, No murmur Abdomen: positive: Non-tender, No distention Skin: positive: Color nml Extremities: positive: No pedal edema Neurologic/Psychiatric: positive: Oriented x3, Other (Non-focal) - LABS Result Diagrams: 11/23/19 04:35 11/23/19 04:35 - DIAGNOSTIC IMAGING Diagnostic Imaging Results: Final report reviewed - FOLLOW UP Follow Up: See PCP in the next week. - TIME SPENT Time Spent in Discharge (Minutes): 45
[2019-11-23] MEDS ORDERED: ENOXAPARIN 40 MG/0.4 ML SYRINGE SUBQ SCH (09:00)
[2019-11-23 09:24] VITALS: BP 159/75
== END 2019-11-23 11:37 | disposition home or self-care (01) ==
LOC: ED 06:51 → MS2 10:36
PROVIDERS: ADMIT Nurse Practitioner Gerontology; ATTEND Internal Medicine
DX: R55 Syncope and collapse (principal); E87.6 Hypokalemia; R73.9 Hyperglycemia, unspecified; I10 Essential (primary) hypertension; E78.5 Hyperlipidemia, unspecified; I65.23 Occlusion and stenosis of bilateral carotid arteries; S00.03XA Contusion of scalp, initial encounter; W18.30XA Fall on same level, unspecified, initial encounter; Y93.H2 Activity, gardening and landscaping; Y92.007 Garden or yard of unspecified non-institutional (private) residence as the place of occurrence of the external cause; Z87.891 Personal history of nicotine dependence
CPT/HCPCS: 36415; 70450; 72125; 80048; 80053; 80320; 81003; 82140; 83036; 83690; 83735; 84484; 85025; 85610; 93005; 93306; 93880; 96361; 96365; 96375; 99285; A9270; G0378; 80306; 80307; 81001; 87086

== ENCOUNTER 2021-01-30 19:28 | Outpatient (CLI) | payer OTHER | END 2021-01-30 19:29 | disposition critical access hospital (66) | LOC: EMS 19:28 | DX: R55 Syncope and collapse (principal); R47.81 Slurred speech; R41.0 Disorientation, unspecified | CPT/HCPCS: A0425; A0427 ==

== ENCOUNTER 2021-01-30 19:38 | Emergency (ER) | payer OTHER ==
[2021-01-30 20:05] LABS: BASOPHILS # (AUTO) 0.1 10^3/uL (0.0-0.1); BASOPHILS % (AUTO) 0.5 %; EOSINOPHILS # (AUTO) 0.3 10^3/uL (0.0-0.7); EOSINOPHILS % (AUTO) 2.8 %; HCT - HEMATOCRIT 39.8 % (42.0-52.0); HGB - HEMOGLOBIN 13.9 g/dL (14.0-18.0); LYMPHOCYTES # (AUTO) 3.6 10^3/uL (1.5-3.5); LYMPHOCYTES % (AUTO) 29.5 %; MEAN CORPUSCULAR HEMOGLOBIN 33.3 pg (27.0-31.0); MEAN CORPUSCULAR HGB CONC 34.9 g/dL (32.0-36.0); MEAN CORPUSCULAR VOLUME 95.2 fL (80.0-94.0); MEAN PLATELET VOLUME 8.7 fL (7.4-11.4); MONOCYTES # (AUTO) 0.7 10^3/uL (0.0-1.0); MONOCYTES % (AUTO) 5.4 %; NEUTROPHILS # (AUTO) 7.5 10^3/uL (1.5-6.6); NEUTROPHILS % (AUTO) 61.4 %; PLT - PLATELET COUNT 222 10^3/uL (130-450); RED BLOOD COUNT 4.18 10^6/uL (4.70-6.10); WHITE BLOOD COUNT 12.2 x10^3/uL (4.8-10.8)
[2021-01-30] MEDS ORDERED: SODIUM CHLORIDE 0.9% 1,000 ML IV STA ×2 (20:09→21:18)
--- NOTE | 2021-01-30 20:09 | ED Physician Documentation ---
History of Present Illness - Stated complaint Stated Complaint: NEAR SYNCOPE - Chief complaint Chief Complaint: Neuro - History obtained from History obtained from: Patient, Family - History of Present Illness Timing: Today Pain level max: 0 Pain level now: 0 - Additonal information Additional information: 66-year-old male presents to the emergency department after a near syncopal event today at the dinner table. He states he has been drinking beer throughout the afternoon and had 3 "rum drinks" tonight. He also smoked marijuana. Denies any narcotic use, does have oxycodone at home. states that he was slumped in his chair and drowsy but arousable. No focal neurological deficits. He is currently feeling better. No chest pain. No shortness of breath. He did have a syncopal event last year with a normal work-up at that time. No fevers. No chills. Review of Systems Ten Systems: 10 systems reviewed and negative Constitutional: denies: Fever, Chills Ears: denies: Ear pain Nose: denies: Rhinorrhea / runny nose, Congestion Throat: denies: Sore throat Cardiac: denies: Chest pain / pressure, Palpitations Respiratory: denies: Dyspnea, Cough GI: denies: Abdominal Pain, Nausea, Vomiting, Diarrhea : denies: Dysuria, Frequency, Hesitancy Skin: denies: Rash Musculoskeletal: denies: Neck pain, Back pain Neurologic: denies: Headache PD PAST MEDICAL HISTORY - Past Medical History Cardiovascular: Hypertension, High cholesterol, Arrhythmia Respiratory: None Neuro: None Endocrine/Autoimmune: None GI: Hemorrhoids : None HEENT: Other Psych: None Musculoskeletal: None Derm: Other - Past Surgical History Past Surgical History: Yes General: Colonoscopy Ortho: Other - Present Medications Home Medications: Ambulatory Orders Medication Instructions Recorded Confirmed Rosuvastatin [Crestor] 10 mg PO QPM 09/04/16 01/30/21 Zolpidem Tartrate 5 mg PO QPM PRN 11/22/19 01/30/21 lisinopriL [Lisinopril] 10 mg PO BID 11/22/19 01/30/21 - Allergies Allergies/Adverse Reactions: Allergies Allergy/AdvReac Type Severity Reaction Status Date / Time No Known Drug Allergies Allergy Verified 01/30/21 19:50 - Social History Does the pt smoke?: No Smoking Status: Never smoker Does the pt drink ETOH?: Yes Does the pt have substance abuse?: Yes - Immunizations Immunizations are current?: No Immunizations: TDAP >10years/unknown - POLST Patient has POLST: No PD ED PE NORMAL - Vitals Vital signs reviewed: Yes - General General: Alert and oriented X 3, No acute distress, Well developed/nourished - HEENT HEENT: PERRL, Moist mucous membranes - Neck Neck: Supple, no meningeal sign - Cardiac Cardiac: RRR, Strong equal pulses - Respiratory Respiratory: No respiratory distress, Clear bilaterally - Abdomen Abdomen: Normal bowel sounds, Soft, Non tender, Non distended - Back Back: No spinal TTP - Derm Derm: Warm and dry, No rash - Extremities Extremities: No edema, No calf tenderness / cord - Neuro Neuro: Alert and oriented X 3, waiter/waitress informal 2-12 intact, No motor deficit, No sensory deficit, Normal speech Eye Opening: Spontaneous Motor: Obeys Commands Verbal: Oriented GCS Score: 15 - Psych Psych: Normal mood, Normal affect Results - Vitals Vitals: Vital Signs - 24 hr 01/30/21 01/30/21 01/30/21 19:39 20:13 21:47 Temperature 35.7 C L 36.5 C Heart Rate 69 66 79 Respiratory 16 18 13 Rate Blood Pressure 140/76 H 129/80 127/85 H O2 Saturation 96 97 96 01/30/21 22:00 Temperature Heart Rate 77 Respiratory 18 Rate Blood Pressure 134/87 H O2 Saturation 100 Oxygen O2 Source Room air - EKG (time done) 1935 Rate: Rate (enter#) (63) Rhythm: NSR [place]: Normal Intervals: Normal MT QRS: Normal Ischemia: Normal ST segments - Labs Labs: Laboratory Tests 01/30/21 01/30/21 01/30/21 19:57 19:57 19:57 WBC 12.2 H RBC 4.18 L Hgb 13.9 L Hct 39.8 L MCV 95.2 H MCH 33.3 H MCHC 34.9 RDW 12.0 Plt Count 222 MPV 8.7 Neut # (Auto) 7.5 H Lymph # (Auto) 3.6 H [place] # (Auto) 0.7 Eos # (Auto) 0.3 Baso # (Auto) 0.1 Absolute Nucleated RBC 0.00 Nucleated RBC % 0.0 Sodium 139 Potassium 3.1 L Chloride 105 Carbon Dioxide 23 Anion Gap 11.0 BUN 19 Creatinine 0.8 Estimated GFR (MDRD) 97 Glucose 115 H Calcium 8.3 L Total Bilirubin 0.7 AST 16 ALT 21 Alkaline Phosphatase 50 Troponin I High Sens 3.8 Total Protein 6.3 L Albumin 4.0 Globulin 2.3 Albumin/Globulin Ratio 1.7 Lipase 21 L Urine Color Urine Clarity Urine pH Ur Specific [place] Urine Protein Urine Glucose (UA) Urine Ketones Urine Occult Blood Urine Nitrite Urine Bilirubin Urine Urobilinogen Ur Leukocyte Esterase Ur Microscopic Review Urine Culture Comments Urine Opiates Screen Ur Oxycodone Screen Urine Methadone Screen Ur Propoxyphene Screen Ur Barbiturates Screen Ur Tricyclics Screen Ur Phencyclidine Scrn Ur Amphetamine Screen U Methamphetamines Scrn U Benzodiazepines Scrn Urine Cocaine Screen U Cannabinoids Screen Ethyl Alcohol 108.5 01/30/21 21:33 WBC RBC Hgb Hct MCV MCH MCHC RDW Plt Count MPV Neut # (Auto) Lymph # (Auto) [place] # (Auto) Eos # (Auto) Baso # (Auto) Absolute Nucleated RBC Nucleated RBC % Sodium Potassium Chloride Carbon Dioxide Anion Gap BUN Creatinine Estimated GFR (MDRD) Glucose Calcium Total Bilirubin AST ALT Alkaline Phosphatase Troponin I High Sens Total Protein Albumin Globulin Albumin/Globulin Ratio Lipase Urine Color YELLOW Urine Clarity CLEAR Urine pH 5.0 Ur Specific [place] >=1.030 H Urine Protein NEGATIVE Urine Glucose (UA) NEGATIVE Urine Ketones TRACE Urine Occult Blood TRACE-INTA Urine Nitrite NEGATIVE Urine Bilirubin NEGATIVE Urine Urobilinogen 0.2 (NORMAL) Ur Leukocyte Esterase NEGATIVE Ur Microscopic Review NOT INDICATED Urine Culture Comments NOT INDICATED Urine Opiates Screen NEGATIVE Ur Oxycodone Screen NEGATIVE Urine Methadone Screen NEGATIVE Ur Propoxyphene Screen NEGATIVE Ur Barbiturates Screen NEGATIVE Ur Tricyclics Screen NEGATIVE Ur Phencyclidine Scrn NEGATIVE Ur Amphetamine Screen NEGATIVE U Methamphetamines Scrn NEGATIVE U Benzodiazepines Scrn NEGATIVE Urine Cocaine Screen NEGATIVE U Cannabinoids Screen POSITIVE H Ethyl Alcohol - Rads (name of study) cxr Radiology: Prelim report reviewed, EMP read contemporaneously, See rad report (no acute disease) PD MEDICAL DECISION MAKING - ED course Complexity details: reviewed results, re-evaluated patient, considered differential (No ST elevation UT, no aortic dissection, no PE, no tension pneumothorax, no aortic aneurysm), d/w patient ED course: 66-year-old male with what appears to be a near syncopal event tonight following alcohol intake and marijuana use. No acute findings on laboratory testing, EKG, chest x-ray. Feels better after IV fluids. Does not want to stay in the hospital tonight. He will follow up with his doctor for further care. Patient and family counseled regarding signs and symptoms for which I believe and urgent re-evaluation would be necessary. Patient with good understanding of and agreement to plan and is comfortable going home at this time This document was made in part using voice recognition software. While efforts are made to proofread this document, sound alike and grammatical errors may occur. Departure - Departure Disposition: 01 Home, Self Care Clinical Impression: Near syncope Alcohol intoxication Qualifiers: Complication of substance-induced condition: uncomplicated Qualified Code(s): F10.920 - Alcohol use, unspecified with intoxication, uncomplicated Condition: Good Instructions: ED Alcohol Intoxication, ED Near Syncope Unkn Follow-Up: Apryl Celaya MD [Primary Care Provider] - Within 1 week Comments: Please follow-up with your doctor for further care. Do not mix any pain medication with alcohol. You should refrain from alcohol and marijuana together as well. Return if you worsen. Discharge Date/Time: 01/30/21 22:07
[2021-01-30 20:24] LABS: ALBUMIN/GLOBULIN RATIO 1.7 (1.0-2.2); BILIRUBIN,TOTAL 0.7 mg/dL (0.2-1.0); CALCIUM 8.3 mg/dL (8.5-10.3); CREATININE 0.8 mg/dL (0.6-1.2); ETOH - ETHANOL 108.5 mg/dL; POTASSIUM 3.1 mmol/L (3.5-5.0); TOTAL PROTEIN 6.3 g/dL (6.7-8.2)
--- NOTE | 2021-01-30 20:39 | XRAY Report ---
PROCEDURE: Chest 1 View X-Ray INDICATIONS: syncope TECHNIQUE: One view of the chest was acquired. COMPARISON: 05/02/2019 FINDINGS: Surgical changes and devices: None. Lungs and pleura: No pleural effusions or pneumothorax. Lungs are clear. Mediastinum: Mediastinal contours appear normal. Heart size is normal. Bones and chest wall: No suspicious bony lesions. Overlying soft tissues appear unremarkable. IMPRESSION: 1. No acute process. 2. Stable exam. Reviewed by: Susan Duque MD on 01/30/2021 8:38 PM PDT Approved by: Susan Duque MD on 01/30/2021 8:38 PM PDT Station ID: [id number]
[2021-01-30 21:45] LABS: MUDS CUTOFF CONCENTRATIONS CUTOFF CONC BELOW:
[2021-01-30 21:49] LABS: BILIRUBIN,URINE NEGATIVE (NEGATIVE); GLUCOSE, URINE (UA) NEGATIVE (NEGATIVE); KETONES,URINE (UA) TRACE mg/dL (NEGATIVE); LEUKOCYTE ESTERASE, URINE NEGATIVE (NEGATIVE); NITRITE,URINE NEGATIVE (NEGATIVE); OCCULT BLOOD,URINE TRACE-INTA (NEGATIVE); PROTEIN,URINE NEGATIVE (NEGATIVE); UROBILINOGEN,URINE 0.2 (NORMAL) E.U./dL (NORMAL)
[2021-01-30 21:50] LABS: CLARITY,URINE CLEAR (CLEAR)
[2021-01-30 21:57] LABS: AMPHETAMINE SCREEN,URINE NEGATIVE (NEGATIVE); BARBITURATE SCREEN,UR NEGATIVE (NEGATIVE); BENZODIAZEPINES SCREEN, URINE NEGATIVE (NEGATIVE); COCAINE SCREEN URINE NEGATIVE (NEGATIVE); METHADONE SCREEN, URINE NEGATIVE (NEGATIVE); METHAMPHETAMINES SCREEN, URINE NEGATIVE (NEGATIVE); OPIATE SCREEN, URINE NEGATIVE (NEGATIVE); OXYCODONE SCREEN, URINE NEGATIVE (NEGATIVE); PROPOXYPHENE SCREEN, URINE NEGATIVE (NEGATIVE); THC CANNABINOID SCREEN, URINE POSITIVE (NEGATIVE); TRICYCLIC ANTIDEPRESSANT,URINE NEGATIVE (NEGATIVE)
[2021-01-30 22:08] VITALS: BP 134/87
== END 2021-01-30 22:07 | disposition home or self-care (01) ==
LOC: EDUNIT# → EDBD → ED 19:38 → SUPCPDRO 19:38 → ED 22:07
DX: R55 Syncope and collapse (principal); F10.920 Alcohol use, unspecified with intoxication, uncomplicated; F12.90 Cannabis use, unspecified, uncomplicated; I45.10 Unspecified right bundle-branch block; I10 Essential (primary) hypertension
CPT/HCPCS: 36415; 80053; 80306; 80320; 81001; 81003; 83690; 84484; 85025; 87086; 93005; 96360; 96361; 99283

== ENCOUNTER 2022-03-23 07:46 | Outpatient (CLI) | payer MEDICARE, OTHER ==
[2022-03-23 08:03] LABS: BASOPHILS # (AUTO) 0.1 10^3/uL (0.0-0.1); BASOPHILS % (AUTO) 0.5 %; EOSINOPHILS # (AUTO) 0.2 10^3/uL (0.0-0.7); EOSINOPHILS % (AUTO) 1.8 %; HCT - HEMATOCRIT 46.3 % (42.0-52.0); HGB - HEMOGLOBIN 16.2 g/dL (14.0-18.0); LYMPHOCYTES # (AUTO) 2.4 10^3/uL (1.5-3.5); MEAN CORPUSCULAR HEMOGLOBIN 33.2 pg (27.0-31.0); MEAN CORPUSCULAR VOLUME 94.9 fL (80.0-94.0); MEAN PLATELET VOLUME 9.1 fL (7.4-11.4); MONOCYTES # (AUTO) 0.5 10^3/uL (0.0-1.0); MONOCYTES % (AUTO) 5.4 %; NEUTROPHILS # (AUTO) 6.1 10^3/uL (1.5-6.6); NEUTROPHILS % (AUTO) 66.1 %; PLT - PLATELET COUNT 229 10^3/uL (130-450); RED BLOOD COUNT 4.88 10^6/uL (4.70-6.10); RED CELL DISTRIBUTION WIDTH 11.9 % (12.0-15.0); WHITE BLOOD COUNT 9.2 x10^3/uL (4.8-10.8)
[2022-03-23 08:27] LABS: ALBUMIN 4.7 g/dL (3.2-5.5); ALBUMIN/GLOBULIN RATIO 1.6 (1.0-2.2); ALKALINE PHOSPHATASE 55 IU/L (42-121); ALT ALANINE AMINOTRANSFERASE 24 IU/L (10-60); AST ASPARTATE AMINOTRANSFERASE 23 IU/L (10-42); BILIRUBIN,TOTAL 0.9 mg/dL (0.2-1.0); BUN - BLOOD UREA NITROGEN 13 mg/dL (6-20); CALCIUM 9.5 mg/dL (8.5-10.3); CARBON DIOXIDE - CO2 29 mmol/L (21-32); CHLORIDE 101 mmol/L (101-111); CHOL/HDL RATIO 2.8 (<5.0); CHOLESTEROL 177 mg/dL; CREATININE 0.8 mg/dL (0.6-1.2); GFR - MDRD 97 (>89); GLUCOSE 105 mg/dL (70-100); HDL CHOLESTEROL 63 mg/dL; LDL CHOLESTEROL,CALCULATED 104 mg/dL; LDL/HDL RATIO 1.7 (<3.6); SODIUM 139 mmol/L (135-145); TOTAL PROTEIN 7.6 g/dL (6.7-8.2); TRIGLYCERIDES 50 mg/dL; VLDL CHOLESTEROL 10 mg/dL
[2022-03-23 08:37] LABS: THYROID STIMULATING HORMONE 1.71 uIU/mL (0.34-5.60)
[2022-03-23 08:38] LABS: BILIRUBIN,URINE NEGATIVE (NEGATIVE); GLUCOSE, URINE (UA) NEGATIVE (NEGATIVE); KETONES,URINE (UA) NEGATIVE (NEGATIVE); LEUKOCYTE ESTERASE, URINE NEGATIVE (NEGATIVE); NITRITE,URINE NEGATIVE (NEGATIVE); OCCULT BLOOD,URINE TRACE-INTA (NEGATIVE); PH,URINE 6.5 PH (5.0-7.5); PROTEIN,URINE NEGATIVE (NEGATIVE); UROBILINOGEN,URINE 0.2 (NORMAL) E.U./dL (NORMAL)
[2022-03-23 08:39] LABS: CLARITY,URINE CLEAR (CLEAR)
[2022-03-23 09:17] LABS: WBC,URINE 0-3 /HPF (0-3)
[2022-03-23 09:18] LABS: BACTERIA,URINE Rare /HPF (None Seen); RBC,URINE 0-5 /HPF (0-5); SQUAMOUS EPITHELIAL CELL,UR FEW Squamous (<= Few)
== END 2022-03-23 07:47 | disposition home or self-care (01) ==
LOC: LAB 07:46
PROVIDERS: ATTEND Pediatrics
DX: I10 Essential (primary) hypertension (principal); E78.5 Hyperlipidemia, unspecified; F51.04 Psychophysiologic insomnia; Z12.5 Encounter for screening for malignant neoplasm of prostate
CPT/HCPCS: 36415; 80053; 80061; 81001; 84443; 85025; G0103; 83721; 84153; 87086

== ENCOUNTER 2023-03-02 07:40 | Outpatient (CLI) | payer MEDICARE, OTHER ==
[2023-03-02 08:09] LABS: BASOPHILS % (AUTO) 0.5 %; EOSINOPHILS # (AUTO) 0.2 10^3/uL (0.0-0.7); HCT - HEMATOCRIT 43.6 % (42.0-52.0); HGB - HEMOGLOBIN 14.9 g/dL (14.0-18.0); MEAN CORPUSCULAR HEMOGLOBIN 32.6 pg (27.0-31.0); MEAN CORPUSCULAR HGB CONC 34.2 g/dL (32.0-36.0); MEAN CORPUSCULAR VOLUME 95.4 fL (80.0-94.0); MEAN PLATELET VOLUME 8.9 fL (7.4-11.4); MONOCYTES # (AUTO) 0.5 10^3/uL (0.0-1.0); MONOCYTES % (AUTO) 6.1 %; NEUTROPHILS # (AUTO) 5.2 10^3/uL (1.5-6.6); NEUTROPHILS % (AUTO) 66.3 %; PLT - PLATELET COUNT 266 10^3/uL (130-450); RED BLOOD COUNT 4.57 10^6/uL (4.70-6.10); RED CELL DISTRIBUTION WIDTH 12.1 % (12.0-15.0); WHITE BLOOD COUNT 7.9 x10^3/uL (4.8-10.8)
[2023-03-02 08:29] LABS: ALBUMIN 4.6 g/dL (3.2-5.5); ALKALINE PHOSPHATASE 54 IU/L (42-121); ALT ALANINE AMINOTRANSFERASE 25 IU/L (10-60); AST ASPARTATE AMINOTRANSFERASE 20 IU/L (10-42); BILIRUBIN,TOTAL 0.8 mg/dL (0.2-1.0); BUN - BLOOD UREA NITROGEN 15 mg/dL (6-20); CALCIUM 9.1 mg/dL (8.5-10.3); CARBON DIOXIDE - CO2 28 mmol/L (21-32); CHLORIDE 105 mmol/L (101-111); CHOLESTEROL 163 mg/dL; CREATININE 0.8 mg/dL (0.6-1.2); GFR - MDRD 97 (>89); GLUCOSE 112 mg/dL (70-100); HDL CHOLESTEROL 54 mg/dL; LDL CHOLESTEROL,CALCULATED 90 mg/dL; LDL/HDL RATIO 1.7 (<3.6); POTASSIUM 3.9 mmol/L (3.5-5.0); SODIUM 139 mmol/L (135-145); TOTAL PROTEIN 6.9 g/dL (6.7-8.2); TRIGLYCERIDES 93 mg/dL; VLDL CHOLESTEROL 19 mg/dL
[2023-03-02 09:10] LABS: ESTIMATED AVERAGE GLUCOSE 94 mg/dL (70-100); HEMOGLOBIN A1c% 4.9 % (4.27-6.07)
== END 2023-03-02 07:41 | disposition home or self-care (01) ==
LOC: LAB 07:40
PROVIDERS: ATTEND Family Medicine
DX: I27.20 Pulmonary hypertension, unspecified (principal); E78.5 Hyperlipidemia, unspecified; I10 Essential (primary) hypertension; R73.9 Hyperglycemia, unspecified; Z12.5 Encounter for screening for malignant neoplasm of prostate
CPT/HCPCS: 36415; 80053; 80061; 83036; 85025; G0103; 83721; 84153

== ENCOUNTER 2024-02-07 08:28 | Outpatient (CLI) | payer MEDICARE, OTHER ==
[2024-02-07 08:59] LABS: BASOPHILS # (AUTO) 0.1 10^3/uL (0.0-0.1); BASOPHILS % (AUTO) 0.6 %; EOSINOPHILS # (AUTO) 0.1 10^3/uL (0.0-0.7); EOSINOPHILS % (AUTO) 1.4 %; HCT - HEMATOCRIT 44.6 % (42.0-52.0); HGB - HEMOGLOBIN 15.2 g/dL (14.0-18.0); LYMPHOCYTES # (AUTO) 2.5 10^3/uL (1.5-3.5); LYMPHOCYTES % (AUTO) 27.4 %; MEAN CORPUSCULAR HEMOGLOBIN 32.1 pg (27.0-31.0); MEAN CORPUSCULAR HGB CONC 34.1 g/dL (32.0-36.0); MEAN CORPUSCULAR VOLUME 94.3 fL (80.0-94.0); MEAN PLATELET VOLUME 8.9 fL (7.4-11.4); MONOCYTES # (AUTO) 0.5 10^3/uL (0.0-1.0); MONOCYTES % (AUTO) 5.9 %; NEUTROPHILS # (AUTO) 5.8 10^3/uL (1.5-6.6); NEUTROPHILS % (AUTO) 64.5 %; PLT - PLATELET COUNT 254 10^3/uL (130-450); RED BLOOD COUNT 4.73 10^6/uL (4.70-6.10); RED CELL DISTRIBUTION WIDTH 11.9 % (12.0-15.0); WHITE BLOOD COUNT 9.1 x10^3/uL (4.8-10.8)
[2024-02-07 09:09] LABS: ALBUMIN 4.7 g/dL (3.2-5.5); ALKALINE PHOSPHATASE 62 IU/L (42-121); ALT ALANINE AMINOTRANSFERASE 20 IU/L (10-60); AST ASPARTATE AMINOTRANSFERASE 16 IU/L (10-42); BILIRUBIN,TOTAL 0.8 mg/dL (0.2-1.0); BUN - BLOOD UREA NITROGEN 13 mg/dL (6-20); CALCIUM 9.7 mg/dL (8.5-10.3); CARBON DIOXIDE - CO2 26 mmol/L (21-32); CHLORIDE 104 mmol/L (101-111); CHOL/HDL RATIO 3.2 (<5.0); CHOLESTEROL 164 mg/dL; CREATININE 0.7 mg/dL (0.6-1.3); GFR - MDRD 112 (>89); GLUCOSE 115 mg/dL (74-104); HDL CHOLESTEROL 51 mg/dL; LDL CHOLESTEROL,CALCULATED 94 mg/dL; LDL/HDL RATIO 1.8 (<3.6); POTASSIUM 3.8 mmol/L (3.5-4.5); SODIUM 137 mmol/L (135-145); TOTAL PROTEIN 7.1 g/dL (6.4-8.9); TRIGLYCERIDES 93 mg/dL; VLDL CHOLESTEROL 19 mg/dL
[2024-02-07 10:23] LABS: ESTIMATED AVERAGE GLUCOSE 94 mg/dL (70-100); HEMOGLOBIN A1c% 4.9 % (4.27-6.07)
== END 2024-02-07 08:29 | disposition home or self-care (01) ==
LOC: LAB 08:28
PROVIDERS: ATTEND Family Medicine
DX: I10 Essential (primary) hypertension (principal); E78.5 Hyperlipidemia, unspecified; Z51.81 Encounter for therapeutic drug level monitoring; Z79.899 Other long term (current) drug therapy
CPT/HCPCS: 36415; 80053; 80061; 83036; 83721; 84153; 85025